=== PATIENT | male | born 1960 | race Caucasian/White ===

== ENCOUNTER 2019-01-07 21:03 | Inpatient (IN) ==
[~2019-01-07 21:03] MED LIST: Succinylcholine Inj 200 MG/10 ML Vial ONE
[2019-01-07] MEDS ORDERED: Etomidate Inj 40 MG/20 ML Vial IV.PUSH ONE (21:04)
[2019-01-07] MEDS ORDERED: Vancomycin Inj 1,000 MG in Sodium Chlor 0.9% Inj 250 ML IV.SIG ONE (21:16)
[2019-01-07] MEDS ORDERED: Propofol 1000 mg/100 ml Inj 1,000 MG/100 ML BOTTLE IV.CONT PRN (21:19)
[2019-01-07] MEDS ORDERED: Propofol 1000 mg/100 ml Inj 1,000 MG/100 ML BOTTLE ONE (21:23)
[2019-01-07] MEDS ORDERED: Piperacil/Tazo 4.5 GM Premix 4.5 GM/100 ML BAG IV.SIG SCH (21:30)
[2019-01-07] MEDS ORDERED: Amiodarone Inj 150 MG in Dextrose 5% in Water Inj 97 ML IV.SIG ONE ×2 (21:36)
[2019-01-07] MEDS ORDERED: Lidocaine 2% 100 MG/5 ML Syringe IV.PUSH ONE (21:36)
[2019-01-07] MEDS ORDERED: Sodium Bicarbonate 8.4% Inj 154 MEQ in Sod Chloride 0.9% Inj 846 ML IV.CONT SCH (21:45)
[2019-01-07] MEDS ORDERED: Sod Chloride 0.9% Inj 1,000 ML IV.SIG SCH (21:45)
[2019-01-07 21:55] LABS: Baso # (Auto) 0.1 th/mm3 (0.0-0.2); Baso % (Auto) 0.4 % (0.0-2.0); Eos # (Auto) 1.7 th/mm3 (0.0-0.4); Eos % (Auto) 4.8 % (0.0-4.0); Hematocrit 43.9 % (39.0-51.0); Hemoglobin 13.8 gm/dL (13.0-17.0); Lymph # (Auto) 1.9 th/mm3 (1.0-4.8); Lymph % (Auto) 5.5 % (9.0-44.0); Mean Corpuscular HGB Conc 31.5 % (32.0-36.0); Mean Corpuscular Hemoglobin 27.6 pg (27.0-34.0); Mean Corpuscular Volume 87.6 fL (80.0-100.0); Mono # (Auto) 1.8 th/mm3 (0.0-0.9); Mono % (Auto) 5.3 % (0.0-8.0); Neut # (Auto) 28.9 th/mm3 (1.8-7.7); Platelet Count 46 th/mm3 (150-450); Red Blood Count 5.01 mil/mm3 (4.50-5.90); White Blood Count 34.4 th/mm3 (4.0-11.0)
[2019-01-07] MEDS ORDERED: Magnesium Sulfate Inj 2 GM in Sodium Chlor 0.9% Inj 96 ML IV.SIG ONE (22:00)
[2019-01-07] MEDS ORDERED: Mag Sulf 1 gm/100 ml Premix 100 ML IV.SIG SCH (22:00)
[2019-01-07 22:12] LABS: ABG Base Excess -21.1 mmol/L (-2-2); ABG PCO2 36 mmHg (38-42); ABG PO2 493 mmHg (61-120)
[2019-01-07 22:12] LABS: Activated Partial Thrombo Time 45.5 sec (23.4-31.7); INR 1.6 Ratio; Prothrombin Time 16.5 sec (9.8-11.6)
[2019-01-07 22:15] LABS: Albumin 1.6 g/dL (3.4-5.0); Calcium 7.4 mg/dL (8.5-10.1); Carbon Dioxide 10.3 meq/L (21.0-32.0); Magnesium 3.4 mg/dL (1.5-2.5); Potassium 4.7 meq/L (3.5-5.1); Total Protein 5.5 g/dL (6.4-8.2); Troponin I 0.03 ng/mL (0.02-0.05)
--- NOTE | 2019-01-07 22:15 | CT ---
EXAM DATE: 01/07/2019 10:07 PM EST AGE/SEX: 58 years / Male INDICATIONS: Respiratory distress; patient ventilated. CLINICAL DATA: This is the patient's initial encounter. Patient reports that signs and symptoms have been present for 1 day and indicates a pain score of Nonresponsive. MEDICAL/SURGICAL HISTORY: Non-responsive. Non-responsive. RADIATION DOSE: 56.35 CTDI (mGy) COMPARISON: [facility] [place], CT BRAIN W/O CONTRAST, 10/13/2012. . TECHNIQUE: CT of the head without contrast. Using automated exposure control and adjustment of the mA and/or kV according to patient size, radiation dose was kept as low as reasonably achievable to ob tain optimal diagnostic quality images. DICOM format image data is available electronically for revi ew and comparison. FINDINGS: Cerebrum: The ventricles, sulci, and basal cisterns are prominent characteristic of moderate severit y central and cortical atrophy; the atrophy is a new finding compared to 2011.. No evidence of midli ne shift, mass lesion, hemorrhage or acute infarction. No extraaxial fluid collections are seen. Posterior Fossa: The cerebellum and brainstem are intact. The 4th ventricle is midline. The cerebe llopontine angle is unremarkable. Extracranial: The visualized portion of the orbits is intact. Several opacified ethmoid air cells. S mall air-fluid level left maxillary sinus Skull: The calvaria is intact. No evidence of skull fracture. CONCLUSION: 1. No acute findings in the brain. 2. Moderate central and cortical atrophy. 3. Ethmoid and left maxillary sinus disease. . . Electronically signed by: Andrew Woodall MD Board Certified Radiologist 01/07/2019 10:14 PM EST
[2019-01-07 22:23] LABS: Burr Cells 1+; Lymphocytes 6 % (9-44); Metamyelocytes 4 % (0-1); Monocytes 3 % (0-8)
[2019-01-07 22:24] LABS: Toxic Granulation 1+; Toxic Vacuolation Present
[2019-01-07 22:29] VITALS: TEMP 98
[2019-01-07] MEDS ORDERED: Acetaminophen 325 MG Tablet PO PRN (22:29)
[2019-01-07] MEDS ORDERED: Bisacodyl 10 MG Supp RECTAL PRN (22:29)
[2019-01-07] MEDS ORDERED: Heparin - SQ 10,000 UNITS/ML Vial SQ SCH (22:30)
--- NOTE | 2019-01-07 22:35 | XR ---
EXAM DATE: 01/07/2019 9:52 PM EST AGE/SEX: 58 years / Male INDICATIONS: ET tube placement. Respiratory arrest. CLINICAL DATA: This is the patient's subsequent encounter. Patient reports that signs and symptoms h ave been present for 1 day and indicates a pain score of Nonresponsive. MEDICAL/SURGICAL HISTORY: Non-responsive. Non-responsive. COMPARISON: No prior exams available for comparison. FINDINGS: ET tube tip well above the monika. Gastric tube tip and side-port project within the stomach. Left marquez bclavian catheter tip in the distal superior vena cava. No evidence of pneumothorax. Patchy areas of infiltrate are present throughout both lungs with the largest area of opacity in the central right neo ng. Patient is rotated towards the right. The heart is normal in size. Both hemidiaphragms well delin eated. CONCLUSION: 1. ET tube in good position. 2. Patchy partially consolidative infiltrates throughout both mid and upper lungs. Electronically signed by: Andrew Woodall MD Board Certified Radiologist 01/07/2019 10:33 PM EST
[2019-01-07] MEDS ORDERED: Vancomycin Consult Pharmacy OTHER ONE (22:37)
--- NOTE | 2019-01-07 22:38 | CT ---
EXAM DATE: 01/07/2019 10:13 PM EST AGE/SEX: 58 years / Male INDICATIONS: Respiratory distress. CLINICAL DATA: This is the patient's initial encounter. Patient reports that signs and symptoms have been present for 1 day and indicates a pain score of Nonresponsive. MEDICAL/SURGICAL HISTORY: Non-responsive. Non-responsive. RADIATION DOSE: 5.1 CTDI (mGy) ; Combined studies COMPARISON: No prior exams available for comparison. TECHNIQUE: Multiple contiguous axial images were obtained through the chest without contrast. Image s were obtained in suspended respiration using multiple row detector helical technique. Using automa juan exposure control and adjustment of the mA and/or kV according to patient size, radiation dose was kept as low as reasonably achievable to obtain optimal diagnostic quality images. DICOM format imag e data is available electronically for review and comparison. FINDINGS: Lungs: Abnormal. There are multifocal areas of opacity with central cavitation and irregular margins involving all segments of both lungs. The largest opacity is in the lateral segment of the right mid dle lobe and is consolidative. Additional areas of consolidation are seen medial in the left midlung and posterior lateral in the lower lung. The cavitary masses/infiltrates measure up to 2 cm in size. Mediastinum: There is good visualization of the great vessels of the middle mediastinum. No evidenc e of mediastinal or hilar adenopathy/mass. Pleurae: No evidence of focal thickening or pleural effusion. Axillae: Unremarkable. Bony Structures: Unremarkable. Miscellaneous: Gastric tube within the stomach. ET tube well above the monika. Left subclavian lacey ter tip at the distal superior vena cava. No evidence of pneumothorax. CONCLUSION: 1. Abnormal appearance to the lungs with disseminated opacities, some of which are cavitary and some of which are segmental with consolidation. The findings suggest a hematogenous process such as septi c emboli versus neoplasm. 2. No evidence of mediastinal adenopathy. Electronically signed by: Andrew Woodall MD Board Certified Radiologist 01/07/2019 10:37 PM EST
[2019-01-07] MEDS ORDERED: Sod Chloride 0.9% Inj 1,000 ML IV.SIG ONE (22:40)
--- NOTE | 2019-01-07 22:52 | CT ---
EXAM DATE: 01/07/2019 10:13 PM EST AGE/SEX: 58 years / Male INDICATIONS: Respiratory distress; patient unresponsive. CLINICAL DATA: This is the patient's initial encounter. Patient reports that signs and symptoms have been present for 1 day and indicates a pain score of Nonresponsive. MEDICAL/SURGICAL HISTORY: Non-responsive. Non-responsive. RADIATION DOSE: 5.1 CTDI (mGy) ; Combined studies COMPARISON: No prior exams available for comparison. TECHNIQUE: Multiple contiguous axial images were obtained through the abdomen. Images were obtained using multiple row detector helical technique. Using automated exposure control and adjustment of the mA and/or kV according to patient size, radiation dose was kept as low as reasonably achievable to o btain optimal diagnostic quality images. DICOM format image data is available electronically for rev iew and comparison. FINDINGS: Liver: The liver has a homogeneous density without space-occupying lesion for noncontrast technique.. There is no dilation of the biliary tree. No calcified gallstones. Spleen: Homogeneous density without enlargement. Pancreas: Unremarkable without mass or calcification. Kidneys: Normal in size and shape. No evidence of mass or hydronephrosis. Multiple small (less than 2 mm) nonobstructing stones throughout the carotid system of both kidneys. Adrenal Glands: Unremarkable. Aorta: The aorta and proximal iliac vessels are grossly unremarkable without aneurysmal dilation. Bowel/Mesentery: No dilated loops of small or large bowel. A moderate amount of stool and gas throug hout the colon. Abdominal Wall: Intact. Retroperitoneum: No evidence of adenopathy in the retrocrural, para-aortic, or deep pelvic regions. Bladder: Valerio catheter in the urinary bladder. Mild distention of the urinary bladder. Reproductive Organs: No abnormal masses or calcifications seen. Inguinal: No evidence of inguinal hernia. There is gas within the lumen of a vein in the left inguin al region Bony Structures: Multiple small round sclerotic lesions in the medial right ilium. Advanced osteoart hritis of the right hip with multiple subchondral cysts present in the femoral head and a small supra -acetabular cyst, complete loss of height of the superior joint space, and prominent osteophytes. Mil d degenerative changes are present in the left hip with osteophyte formation. CONCLUSION: 1. Multiple small nonobstructing stones in both kidneys without evidence of hydronephrosis. 2. There is gas seen within the lumen of the vein in the left inguinal region. 3. Multiple sclerotic lesions in the medial right ilium. This is nonspecific. 4. Advanced osteoarthritis of the right hip. 5. There is some distention of the urinary bladder despite an indwelling Valerio catheter. Electronically signed by: Andrew Woodall MD Board Certified Radiologist 01/07/2019 10:51 PM EST
--- NOTE | 2019-01-07 22:53 | P.HPCC ---
History of Present Illness Service: Critical care Primary Care Physician: No Primary Care Physician Chief Complaint: Altered mental status History of Present Illness: 58yM brought in by EMS for altered mental status and respiratory distress. The patient reportedly arrived to the ED toxic-appearing, mottled, in severe respiratory distress with oxygen saturations in low to mid 80s, and not mentating appropriately so the decision was made to emergently intubate him on arrival. He had a left tib-fib IO placed by EMS prior to arrival. The patient had a central line placed and during the procedure was noted to have V tach with a pulse that converted back into sinus tachycardia after receiving IV lidocaine and amiodarone bolus. The patient had CT scans of his head, chest, abdomen and pelvis performed which showed multiple cavitary lung lesions. He had an LP performed by the ED physician. On my evaluation, he was intubated and sedated. He reportedly has a history of IV drug abuse as per EMS. The patient was seen in our department on 01/04 complaining of right hip pain, found to have severe osteoarthritis and instructed to follow up with orthopedics, but did not require labs during that visit. I spoke with the patient's mother, Tenisha, over the phone; she is in [place] and has not seen the patient in several years. She spoke to him on the phone a few days ago and says that he was complaining of "chills and his whole body hurting". She doesn't know what medical problems he has, if he is taking medications, or if he uses any drugs or alcohol but believes that he still actively smokes. - Diagnosis (1) Severe sepsis (2) Acute kidney injury (3) Acute encephalopathy (4) Cavitary lesion of lung (5) Acute respiratory failure with hypoxia (6) Lactic acidosis (7) Bandemia (8) Metabolic acidosis (9) Acute liver failure (10) Ventricular tachycardia (11) Hyperammonemia Inpatient Certification: I certify that the inpatient services were ordered in accordance with Medicare regulations governing the order. This includes certification that hospital inpatient services are reasonable and necessary and in the case of services not specified as inpatient-only under 42 CFR 419.22(n), that they are appropriately provided as inpatient services in accordance to with the 2-midnight benchmark under 43 CFR 412.3(e) Estimated Total Length of Stay (Days): 10 Plans for Post Hospital Care: Not yet determined Review of Systems unobtainable due to endotracheal tube PMFSH - History History Provided By: Medical Record - Medical / Surgical Hx Neg / Unobtainable Medical Problems Denied: Unable to Obtain Surgical History: Unable to Obtain - Medical History Medical History: Medical History (Last Reviewed 01/07/19 @ 22:46 by Norma Ramirez DO) Medical history unknown Surgical history unknown Patient denies medical problems - Surgical History Surgical History: Surgical History (Last Reviewed 01/07/19 @ 22:46 by Norma Ramirez DO) No history of previous surgery - Social History I have reviewed the patient's Social History: Yes - Tobacco History Second Hand Smoke Exposure: Yes Smoking Status: Unknown if ever smoked Tobacco Type: Cigarettes - Alcohol History How Often Do You Have a Drink Containing Alcohol: Unable to Obtain - Substance Use History Substance History: Unable to Obtain - Travel History Recent Travel in the [place] Within the Last 8 Weeks: No Recent Travel Out of the Country Within the Last 8 Weeks: No - Immunization History Tetanus Immunization: Unable to Assess Medications and Allergies Active Medications: Active Medications Acetaminophen (Tylenol) 650 mg PO Q6H PRN PRN Reason: PAIN 1-10 AND/OR FEVER >101F Al Hydroxide/Mg Hydroxide (Milk Of Juanita Liq) 30 ml PO Q12H PRN PRN Reason: Mild Constipation Albuterol (Duoneb Neb (Prn)) 1 ampul NEB Q2HR NEB PRN PRN Reason: WHEEZING Albuterol (Duoneb Neb (Loyd)) 1 ampul NEB Q4HR NEB [facility] Bisacodyl (Dulcolax Supp) 10 mg RECTAL DAILY PRN PRN Reason: SEVERE CONSITIPATION Chlorhexidine Gluconate (Peridex 0.12% Oral Kit) 15 ml OROPHARYNG BID@0800, 2000 [facility] Chlorhexidine Gluconate (Chlorhexidine 2% Cloth) 3 pack TOPICAL DAILY@0400 [facility] Stop: 01/13/19 03:59 Chlorhexidine Gluconate (Chlorhexidine 2% Cloth) 3 pack TOPICAL DAILY@0400 PRN PRN Reason: Extra cloth needed Stop: 01/13/19 03:59 Famotidine (Pepcid) 20 mg PO DAILY [facility] Famotidine (Pepcid Pf Inj) 20 mg IV.PUSH DAILY [facility] Heparin Sodium (Porcine) (Heparin Inj) 5,000 units SQ Q12H [facility] Piperacillin/Tazobactam/Dextrose (Zosyn 4.5 Gm Premix) 4.5 gm in 100 mls @ 200 mls/hr IV.SIG ONCE [facility] Propofol (Diprivan 1000 Mg/100 Ml Inj) 1,000 mg in 100 mls @ 1.497 mls/hr IV.CONT TITRATE PRN; Protocol PRN Reason: Per Protocol Amiodarone HCl 450 mg/ (Dextrose) 250 mls @ 33.33 mls/hr IV.CONT TITRATE PRN; Protocol PRN Reason: Per Protocol Sodium Bicarbonate 154 meq/ (Sodium Chloride) 1,000 mls @ 0 mls/hr IV.CONT .Q0M [facility]; Protocol Magnesium Sulfate 2 gm/ Sodium (Chloride) 100 mls @ 50 mls/hr IV.SIG STAT ONE Stop: 01/07/19 23:59 Magnesium Sulfate/Dextrose (Magnesium Sulfate 1 Gm/D5w 100 Ml Premix) 100 mls @ 100 mls/hr IV.SIG Q1H [facility] Stop: 01/07/19 23:59 Vancomycin HCl 1,000 mg/ (Sodium Chloride) 250 mls @ 250 mls/hr IV.SIG Q12H [facility] Piperacillin/Tazobactam/Dextrose (Zosyn 4.5 Gm Premix) 4.5 gm in 100 mls @ 200 mls/hr IV.SIG Q6H [facility] Azithromycin 500 mg/ Sodium (Chloride) 250 mls @ 250 mls/hr IV.SIG Q24H [facility] Lactulose (Lactulose Liq) 30 ml PO DAILY PRN PRN Reason: SEVERE CONSITIPATION Miscellaneous Medication () 1 each OROPHARYNG 0000,0400,1200,1600 [facility] Ondansetron HCl (Zofran Inj) 4 mg IV.PUSH Q6H PRN PRN Reason: NAUSEA OR VOMITING Pharmacy Profile Note (Vancomycin Consult Pharmacy) 1 each OTHER ONCE ONE Stop: 01/07/19 22:38 Senna/Docusate Sodium (Liz-Colace) 1 tab PO BID [facility] Sennosides (Senokot) 17.2 mg PO Q12H PRN PRN Reason: Moderate Constipation Sodium Chloride (Ns Flush) 2 ml IV.FLUSH BID [facility] Sodium Chloride (Ns Flush) 2 ml IV.FLUSH PRN PRN PRN Reason: FLUSH AFTER USING IV ACCESS Allergies Allergy/AdvReac Type Severity Reaction Status Date / Time codeine Allergy Severe Hives Verified 01/07/19 22:10 Results - Labs CBC & Chem 7: 01/07/19 21:33 01/07/19 21:33 Labs: Short CBC 01/07/19 Range/Units 21:33 WBC 34.4 H (4.0-11.0) th/mm3 Hgb 13.8 (13.0-17.0) gm/dL Hct 43.9 (39.0-51.0) % Plt Count 46 L (150-450) th/mm3 BMP 01/07/19 21:33 Sodium 134 L Potassium 4.7 Chloride 96 L Carbon Dioxide 10.3 L BUN 87 H Creatinine 3.57 H Calcium 7.4 L* Cardiac Enzymes 01/07/19 Range/Units 21:33 Troponin I 0.03 (0.02-0.05) ng/mL Liver Function 01/07/19 Range/Units 21:33 Total Bilirubin 2.0 H (0.2-1.0) mg/dL AST 161 H (15-37) U/L ALT 70 (12-78) U/L Alkaline Phosphatase 185 H (45-117) U/L Albumin 1.6 L (3.4-5.0) g/dL - Imaging Impressions Chest X-Ray 01/07/19 21:17 CONCLUSION: 1. ET tube in good position. 2. Patchy partially consolidative infiltrates throughout both mid and upper lungs. Head CT 01/07/19 21:17 CONCLUSION: 1. No acute findings in the brain. 2. Moderate central and cortical atrophy. 3. Ethmoid and left maxillary sinus disease. . . Chest CT 01/07/19 21:37 CONCLUSION: 1. Abnormal appearance to the lungs with disseminated opacities, some of which are cavitary and some of which are segmental with consolidation. The findings suggest a hematogenous process such as septic emboli versus neoplasm. 2. No evidence of mediastinal adenopathy. - ABG ABG results: 6.98/ 46/ 493/ 8/ -21.1 Attestation: I personally reviewed and interpreted this ABG as follows: Interpretation: Profound metabolic acidosis Exam Vital signs: Vital Signs 01/07/19 21:03 01/07/19 21:17 Temperature 98.0 F Pulse Rate 140 H 140 H Respiratory Rate 44 H Blood Pressure 168/135 H Pulse Oximetry 85 L Intake & Output 01/07/19 01/07/19 01/08/19 06:59 18:59 06:59 Weight 49.895 kg Narrative: GEN: Ill-appearing, appears older than stated age, intubated and sedated HEENT: Mucosa pale and dry, pupils 3 mm and sluggishly reactive NECK: Trachea midline CARDIO: Tachy, regular, no obvious murmurs; left subclavian TLC present PULM: Diminished breath sounds at bases bilaterally ABD/GI: Soft, non-distended EXT/MSK: No peripheral edema, IO present in left prox tib-fib SKIN: Mottled, cool, delayed capillary refill; puncture wounds present to right AC in various stages of healing NEURO: GCS 3T, no spontaneous movement, (+) cough reflex PSYCH: Unable to assess Caprini VTE Risk Assessment Caprini VTE Risk Assessment: Moderate/High Risk (score >= 2) Caprini Risk Assessment Model: Point Value = 1 Point Value = 2 Point Value = 3 Point Value = 5 Age 41-60 Minor surgery BMI > 25 kg/m2 Swollen legs Varicose veins or History of unexplained or recurrent spontaneous Oral contraceptives or hormone replacement Sepsis (< 1 month) Serious lung disease, including pneumonia (< 1 month) Abnormal pulmonary function Acute myocardial infarction Congestive heart failure (< 1 month) History of inflammatory bowel disease Medical patient at bed rest Age 61-74 Arthroscopic surgery Major open surgery (> 45 min) Laparoscopic surgery (> 45 min) Malignancy Confined to bed (> 72 hours) Immobilizing plaster cast Central venous access Age >= 75 History of VTE Family history of VTE Factor V Leiden Prothrombin [id number] Lupus anticoagulant Anticardiolipin antibodies Elevated serum homocysteine Heparin-induced thrombocytopenia Other congenital or acquired thrombophilia Stroke (< 1 month) Elective arthroplasty Hip, pelvis, or leg fracture Acute spinal cord injury (< 1 month) Prophylaxis Regimen: Total Risk Factor Score Risk Level Prophylaxis Regimen 0-1 Low Early ambulation 2 Moderate Order ONE of the following: *Sequential Compression Device (SCD) *Heparin 5000 units SQ BID 3-4 Higher Order ONE of the following medications: *Heparin 5000 units SQ TID *Enoxaparin/Lovenox 40 mg SQ daily (WT < 150 kg, CrCl > 30 mL/min) *Enoxaparin/Lovenox 30 mg SQ daily (WT < 150 kg, CrCl > 10-29 mL/min) *Enoxaparin/Lovenox 30 mg SQ BID (WT < 150 kg, CrCl > 30 mL/min) AND/OR *Sequential Compression Device (SCD) 5 or more Highest Order ONE of the following medications: *Heparin 5000 units SQ TID (Preferred with Epidurals) *Enoxaparin/Lovenox 40 mg SQ daily (WT < 150 kg, CrCl > 30 mL/min) *Enoxaparin/Lovenox 30 mg SQ daily (WT < 150 kg, CrCl > 10-29 mL/min) *Enoxaparin/Lovenox 30 mg SQ BID (WT < 150 kg, CrCl > 30 mL/min) AND *Sequential Compression Device (SCD) Assessment and Plan - Problem List (1) Severe sepsis Code(s): A41.9 - Sepsis, unspecified organism; R65.20 - Severe sepsis without septic shock Status: Acute (2) Acute kidney injury Code(s): N17.9 - Acute kidney failure, unspecified Status: Acute (3) Acute encephalopathy Code(s): G93.40 - Encephalopathy, unspecified Status: Acute (4) Cavitary lesion of lung Code(s): J98.4 - Other disorders of lung Status: Acute (5) Acute respiratory failure with hypoxia Code(s): J96.01 - Acute respiratory failure with hypoxia Status: Acute (6) Lactic acidosis Code(s): E87.2 - Acidosis Status: Acute (7) Bandemia Code(s): D72.825 - Bandemia Status: Acute (8) Metabolic acidosis Code(s): E87.2 - Acidosis Status: Acute (9) Acute liver failure Code(s): K72.00 - Acute and subacute hepatic failure without coma Status: Acute (10) Ventricular tachycardia Code(s): I47.2 - Ventricular tachycardia Status: Acute (11) Hyperammonemia Code(s): E72.20 - Disorder of urea cycle metabolism, unspecified Status: Acute - Assessment and Plan Plan: 58yM presenting with severe sepsis/ multi-system organ dysfunction and acute hypoxic respiratory failure NEURO: Acute metabolic encephalopathy Possible history of IVDA -CTH showed no acute abnormalities -Currently only on propofol for sedation, synchronous with vent -LP performed by ED physician, f/u results of gram stain and culture -Received meningitic dose of rocephin in ED, see below CARDIO: Ventricular tachycardia Suspected infectious endocarditis -Resolved, now in sinus tachycardia -s/p lidocaine and amiodarone bolus -I suspect the VT was likely due to profound acidosis -Cardiac monitoring -Check 2D echo, may need SCOTT PULM: Acute hypoxic respiratory failure requiring mechanical ventilation Multiple cavitary lung lesions -Continue current vent settings, will check frequent ABGs to follow pH * Repeat ABG after aggressive resuscitation- 7.14/ 37.6/ 202/ 12.5/ -14.7 -CXR shows ETT in appropriate position -Broad-spectrum antibiotics as detailed below F/E/N, RENAL: Acute kidney injury Moderate to severe protein calorie malnutrition present on arrival as evidenced by hypoalbuminemia, low body weight, temporal wasting -NPO -Bicarb gtt -s/p multiple amps of bicarb and at least 3 L crystalloid bolus in ED -Trend BUN/ creat and strict Is/Os GI: Acute liver failure, suspected shock liver Hyperammonemia -INR 1.6 -LFTs elevated in 100s, total bilirubin 2.0 -Trend LFTs and coags daily -Ammonia nearly 50, start scheduled lactulose and recheck in AM -Check hepatitis profile ID: Severe sepsis/ multi-system organ dysfunction Profound lactic acidosis Multiple cavitary lung lesions Suspected infectious endocarditis Possible meningitis Incidental finding of gas in left inguinal region -Received 2g ceftriaxone in ED to cover for meningitis; follow up results of LP gram stain -Continue broad spectrum antibiotics, including vancomycin, zosyn, and azithromycin to cover bacteremia and lung lesions -Droplet and contact precautions for now -Sputum culture, sputum AFB, blood and urine cultures, legionella/ pneumococcus testing, HIV testing, hepatitis panel, stool C diff PCR -Infectious disease consult in AM -Continue aggressive fluid resuscitation and trend lactate * Bands currently 40% and lactic acid 15 -Gas in left inguinal region likely due to left IO placed prior to arrival, no interventions needed, no signs of necrotizing soft tissue infection in surrounding area on imaging ENDO: -NISS with q6h Accuchecks PROPHY: -SCDs, SQH -PPI OVERALL: This patient is critically ill and requires ICU level of care. He is at very high risk for decompensation. Counseling/ Coordination of Care: This patient is critically ill with impairment of one or more vital organ systems with a high probability of imminent or life-threatening deterioration. High-complexity medical decision making was required to support vital organ function and/ or prevent deterioration in the patient's condition. Total critical care time spent is 60 minutes giving full attention to this patient. This includes examining the patient, gathering history from someone other than the patient (i.e. chart review), discussing the patient's care with other providers, managing the patient's blood pressure and ventilator settings, ordering and interpreting radiologic studies, ordering and interpreting laboratory values, managing the patient's sedation requirements, re-evaluation at frequent intervals, and documentation. Amount of time is separate from teaching, counseling the patient and/or family, and exclusive of procedures. Code Status: Presumed to be full code, no family members present to verify
[2019-01-07] MEDS ORDERED: Vancomycin Consult Pharmacy OTHER PRN (22:54)
[2019-01-07 22:55] VITALS: BP 147/89
[2019-01-07] MEDS ORDERED: Azithromycin Inj 500 MG in Sodium Chlor 0.9% Inj 250 ML IV.SIG SCH (23:00)
[2019-01-07] MEDS ORDERED: Dextrose 50% in Water 50 ML Vial IV.PUSH PRN (23:19)
[2019-01-07 23:22] LABS: ABG Base Excess -14.7 mmol/L (-2-2); ABG PCO2 38 mmHg (38-42); ABG PO2 202 mmHg (61-120)
[2019-01-07 23:44] VITALS: O2SAT 100
[2019-01-07 23:53] VITALS: PULSE 80
[2019-01-07 23:56] VITALS: RESP 24
[2019-01-08] MEDS ORDERED: Oral Hygiene Kit OROPHARYNG SCH
[2019-01-08] MEDS ORDERED: Insulin NovoLIN Regular Correctional Sugar Inj SQ SCH
[2019-01-08 00:29] LABS: Lymphocytes, CSF 15 %; Monocytes,CSF 4 %; Neutrophils,CSF 64 %
[2019-01-08 00:34] LABS: RBC on Tube 4 14 /mm3
--- NOTE | 2019-01-08 00:34 | P.DN ---
Pronouncement Note - Date and Time of Date of : 01/08/19 Time of : 00:25 - PCOD Preliminary cause of : Cardiac arrest Preliminary cause of : Severe sepsis/ multisystem organ failure - Contributing Factors (1) Severe sepsis (2) Acute kidney injury (3) Acute encephalopathy (4) Cavitary lesion of lung (5) Acute respiratory failure with hypoxia (6) Lactic acidosis (7) Bandemia (8) Metabolic acidosis (9) Acute liver failure (10) Ventricular tachycardia (11) Hyperammonemia - Summary Additional details: Please see admission H&P for full details of presentation. At 11:55 PM on 01/07, I was called to the bedside by RN as the patient was noted to have multiple PVCs. Shortly thereafter, he was noted to go into cardiac arrest with PEA noted on monitor. He was given multiple rounds of epinephrine, sodium bicarb, calcium chloride, and had chest compressions performed for nearly 30 minutes. He was never noted to have a shockable rhythm. The patient was found to be in asystole on his final pulse check. He was pronounced at 00:25 on 01/08/19. I notified his mother by phone. Preliminary cause of is cardiac arrest secondary to severe sepsis/ multi- system organ dysfunction. - Additional Data Confirmation of : no pulse, no respirations, no heart sounds, pupils fixed and dilated Family: contacted Attending/PCP notified?: Yes Attending physician: Ashley Was code activated?: Yes
--- NOTE | 2019-01-08 01:28 | ED ---
HPI General Chief Complaint: Shortness of Breath/Dyspnea Stated Complaint: emergent Time Seen by Provider: 01/07/19 21:16 Source: EMS Mode of arrival: EMS Limitations: altered mental status History of Present Illness HPI narrative: 58-year-old male came to the emergency room brought in by EMS emergently altered mental status, respiratory distress. Patient was in extremis upon arrival. EMS was unable to secure any peripheral IV. Patient is a known IV drug abuser and as per EMS all the prophylaxis is were scarred. Patient appeared cyanotic/dusky with a GCS of 10. He was not in any condition to give any meaningful history. His blood glucose as per EMS was 125. As per EMS patient was just seen here a day or 2 back for not feeling well. Related Data Previous Rx's Medication Instructions Recorded diclofenac sodium 75 mg PO BID PRN #20 tab 01/04/19 Allergies Allergy/AdvReac Type Severity Reaction Status Date / Time codeine Allergy Severe Hives Verified 01/07/19 22:10 Review of Systems ROS Unobtainable ROS Unobtainable: unobtainable due to mental status [facility] Medical History Medical History Medical history unknown (Acute) Surgical history unknown (Acute) Patient denies medical problems (Acute) Surgical History Surgical History No history of previous surgery (Acute) Social History Social History Substance History: Unable to Obtain Second Hand Smoke Exposure: Yes Smoking Status: Unknown if ever smoked Tobacco Type: Cigarettes How Often Do You Have a Drink Containing Alcohol: Unable to Obtain Recent Travel in [facility] within the Last 8 Weeks: No Recent Out of Country Travel within the Last 8 Weeks: No Immunization History Tetanus Immunization: Unable to Assess Exam Narrative Exam Narrative: GENERAL: Altered mental status, in extremis, emaciated, anxious SKIN: Cyanotic, cold, mottled skin with Refill of more than 5 seconds HEAD: Atraumatic. Normocephalic. EYES: Pupils equal and round. No scleral icterus. No injection or drainage. ENT: No nasal bleeding or discharge. Dry mucous membrane and coated tongue. NECK: Trachea midline. No JVD. CARDIOVASCULAR: Regular rate and rhythm. No murmur appreciated. RESPIRATORY: Air hunger, tachypnea GASTROINTESTINAL: Abdomen soft, non-tender, nondistended. Hepatic and splenic margins not palpable. MUSCULOSKELETAL: No obvious deformities. No clubbing. No cyanosis. No edema. NEUROLOGICAL: GCS of 10 PSYCHIATRIC: Unable to assess Course Initial Documented Vital Signs Temperature 98.0 F 01/07/19 21:03 Pulse Rate 140 H 01/07/19 21:03 Respiratory Rate 44 H 01/07/19 21:03 Blood Pressure 168/135 H 01/07/19 21:03 Pulse Oximetry 85 L 01/07/19 21:03 Last Documented Vital Signs Temperature 98.0 F 01/07/19 21:03 Pulse Rate 80 01/07/19 23:51 Respiratory Rate 24 01/07/19 23:54 Blood Pressure 147/89 H 01/07/19 22:54 Pulse Oximetry 100 01/07/19 23:54 Procedures Central Line Placement Left SC: Patient Placed on Monitor/Pulse Ox: Yes MD Prep: mask, gown, gloves and other (Surgical hat) Central Line Prep: Chlorhexidine scrub Local anesthesia used: lidocaine 1% Amount of anesthesia used (mL): 3 Central Line Lumen Inserted: triple Post Procedure: good blood return, all ports aspirated, flushed, capped and sterile dressing applied Post Procedure X-Ray: tip of catheter in good position Patient Tolerated Procedure: no complications Complications: none Intubation Sedative: etomidate Mg Given: 20 Paralytic: succinylcholine Mg Given: 100 Laryngoscope: Al[place] ET Tube Size: 7.5 ET Tube Uncuffed: No Tube Secured Depth (cm): 22 Tube Secured Location: lips Tube Placement Confirmation: visualized tube passing through cords, equal breath sounds bilaterally, no breath sounds over epigastrium and confirmation by capnometry Patient Tolerated Procedure: no complications Intubation Complications: none IO Left Tibia: Anesthetic used: none IO Instrument Used to Penetrate the Cortex: standard IO needle Patient Tolerated Procedure: no complications Complications: none Lumbar Puncture Patient Position: left lateral decubitus Skin Prep: Povidone-Iodine 1% Local anesthetic used: Lidocaine 1% Amount of anesthesia used (mL): 3 Spinal Needle Gauge: 20G Interspace Used: L3-L4 Fluid Initially Obtained: clear Complications: none Critical Care Time Critical Care Time: Yes Total Critical Care Time: 75 Attestation: Aggregate critical care time was 75 minutes. Time to perform other separately billable procedures was not included in the critical care time. My time did not include minutes spent treating any other patients simultaneously or on activities that did not directly contribute to the patient's treatment. The services I provided to this patient were to treat and/or prevent clinically significant deterioration that could result in: Respiratory failure, septic shock, V. tach, fluid resuscitation I provided critical care services requiring my management, as noted below: Chart data review, documentation time, medication orders and management, vital sign assessments/reviewing monitor data, ordering and reviewing lab tests, ordering and interpreting/reviewing x-rays and diagnostic studies, care of the patient and discussion of the patient with the admitting physicians. Medical Decision Making MDM Narrative Medical decision making narrative: 11 PM patient was in extremely critical condition. After the airway was secured and IO was secured patient started getting IV fluid bolus, antibiotic for sepsis coverage. I was preparing to put a central line when noticed that patient was throwing and nonsustained VT's on the monitor. 1 amp of lidocaine was given. In the middle of getting the central line patient started getting VT's. He never lost his pulse. Patient was given 2 g of magnesium IV and IV 300 mg of amiodarone bolus. This converted the patient. Please refer to my procedure notes regarding the intubation as well as central line placement. ABG showed significant metabolic acidosis. Patient was given 2 amp of bicarb and bicarb drip was ordered. At this point I spoke with the front services agent and admitted the patient to Dr. Arellano. 1 AM patient was still in the department and started to code at around midnight. I started the code and 1 round of epinephrine was given. The front services agent came in the room and ran the rest of the code and eventually pronounced the patient. Please refer to her dictation regarding that. Medical Screen Exam Complete: Yes Emergency Medical Condition: Yes Lab Data Result diagrams: 01/07/19 21:33 01/07/19 21:33 Lab Results 01/07/19 01/07/19 01/07/19 Range/Units 21:24 21:33 21:33 WBC 34.4 H (4.0-11.0) th/mm3 RBC 5.01 (4.50-5.90) mil/mm3 Hgb 13.8 (13.0-17.0) gm/dL POC Hgb (Calc) (13.0-17.0) g/dL Hct 43.9 (39.0-51.0) % POC Hct (39-51.0) % MCV 87.6 (80.0-100.0) fL MCH 27.6 (27.0-34.0) pg MCHC 31.5 L (32.0-36.0) % RDW 17.0 (11.6-17.2) % Plt Count 46 L (150-450) th/mm3 MPV 11.0 (7.0-11.0) fL Prelim Diff (Auto) Slide review pending Neut % (Auto) 84.0 H (16.0-70.0) % Lymph % (Auto) 5.5 L (9.0-44.0) % [place] % (Auto) 5.3 (0.0-8.0) % Eos % (Auto) 4.8 H (0.0-4.0) % Baso % (Auto) 0.4 (0.0-2.0) % Neut # (Auto) 28.9 H (1.8-7.7) th/mm3 Lymph # (Auto) 1.9 (1.0-4.8) th/mm3 [place] # (Auto) 1.8 H (0.0-0.9) th/mm3 Eos # (Auto) 1.7 H (0.0-0.4) th/mm3 Baso # (Auto) 0.1 (0.0-0.2) th/mm3 WBC Differential Manual diff final Seg Neuts % (Manual) 46 (16-70) % Band Neuts % (Manual) 41 H (0-6) % Lymphocytes % (Manual) 6 L (9-44) % Monocytes % (Manual) 3 (0-8) % Metamyelocytes % (Man) 4 H (0-1) % Abs Neuts (Manual) 31.3 H (1.8-7.7) th/mm3 Differential Comment . Toxic Granulation 1+ H (None) Toxic Vacuolation Present H (None) Platelet Estimate Low L (Normal) Platelet Morphology Enlarged H (Normal) Gile Cells 1+ H (None) PT (9.8-11.6) sec INR Ratio APTT (23.4-31.7) sec Puncture Site Right brachial Patient Temperature 98.6 O2 Saturation 99 (90-100) % ABG pH 6.98 L* (7.380-7.420) ABG pCO2 36 L (38-42) mmHg ABG pO2 493 H (61-120) mmHg ABG HCO3 8 L* (22-26) mmol/L ABG O2 Content 20.0 (12.0-20.0) Vol % ABG Base Excess -21.1 L (-2-2) mmol/L ABG Methemoglobin 0.6 (0-2) % Hemoglobin 13.6 (12.0-16.0) G/DL Carboxyhemoglobin 0.0 (0-4) % O2 Delivery Device Ventilator Vent Setting Prvc / ac / Inspired O2 100 % Critical Value Yes POC Sodium (137-144) mmol/L Sodium 134 L (136-145) meq/L POC Potassium (3.6-5.0) mmol/L Potassium 4.7 (3.5-5.1) meq/L POC Chloride (102-111) mmol/L Chloride 96 L (98-107) meq/L Carbon Dioxide 10.3 L (21.0-32.0) meq/L Anion Gap 28 H (5-15) meq/L POC BUN (5-21) mg/dL BUN 87 H (7-18) mg/dL Creatinine 3.57 H (0.60-1.30) mg/dL POC Creatinine (0.6-1.3) mg/dL Estimated GFR 18 L (>89) mL/min POC Glucose (68-110) mg/dL Random Glucose 207 H (74-106) mg/dL Lactic Acid (0.4-2.0) mmol/L Calcium 7.4 L* (8.5-10.1) mg/dL Calcium Adj for Albumin 9.3 (8.5-10.1) mg/dL Magnesium 3.4 H (1.5-2.5) mg/dL Total Bilirubin 2.0 H (0.2-1.0) mg/dL AST 161 H (15-37) U/L ALT 70 (12-78) U/L Alkaline Phosphatase 185 H (45-117) U/L Ammonia (11-32) mcmol/L Troponin I 0.03 (0.02-0.05) ng/mL Total Protein 5.5 L (6.4-8.2) g/dL Albumin 1.6 L (3.4-5.0) g/dL CSF Volume (1) mL CSF Supernat Color (1) (Clear) CSF Gross Blood (1) (0) CSF Volume (2) mL CSF Supernat Color (2) (Clear) CSF Gross Blood (2) (0) CSF Volume (3) mL CSF Supernat Color (3) (Clear) CSF Gross Blood (3) (0) CSF Volume (4) mL CSF Supernat Color (4) (Clear) CSF Gross Blood (4) (0) CSF WBC (4) (0-10) /mm3 CSF RBC (4) (None) /mm3 CSF Neutrophils % % CSF Lymphocytes % % CSF Monocytes % % CSF Histiocytes % CSF Glucose (40-80) mg/dL CSF Total Protein (15.0-45.0) mg/dL CSF Herpes I DNA (PCR) (Negative) CSF Herpes II DNA (PCR) (Negative) CSF N.mening B/E.coli K1 CSF N.meningitidis A/Y Serum Alcohol (0-5) mg/dL Bacterial Ag Source H.influenzae Type B Ag N. meningitidis C/W 135 Group B Strep Antigen S. pneumoniae Antigen 01/07/19 01/07/19 01/07/19 Range/Units 21:33 21:33 21:35 WBC (4.0-11.0) th/mm3 RBC (4.50-5.90) mil/mm3 Hgb (13.0-17.0) gm/dL POC Hgb (Calc) 15.3 (13.0-17.0) g/dL Hct (39.0-51.0) % POC Hct 45.0 (39-51.0) % MCV (80.0-100.0) fL MCH (27.0-34.0) pg MCHC (32.0-36.0) % RDW (11.6-17.2) % Plt Count (150-450) th/mm3 MPV (7.0-11.0) fL Prelim Diff (Auto) Neut % (Auto) (16.0-70.0) % Lymph % (Auto) (9.0-44.0) % [place] % (Auto) (0.0-8.0) % Eos % (Auto) (0.0-4.0) % Baso % (Auto) (0.0-2.0) % Neut # (Auto) (1.8-7.7) th/mm3 Lymph # (Auto) (1.0-4.8) th/mm3 [place] # (Auto) (0.0-0.9) th/mm3 Eos # (Auto) (0.0-0.4) th/mm3 Baso # (Auto) (0.0-0.2) th/mm3 WBC Differential Seg Neuts % (Manual) (16-70) % Band Neuts % (Manual) (0-6) % Lymphocytes % (Manual) (9-44) % Monocytes % (Manual) (0-8) % Metamyelocytes % (Man) (0-1) % Abs Neuts (Manual) (1.8-7.7) th/mm3 Differential Comment Toxic Granulation (None) Toxic Vacuolation (None) Platelet Estimate (Normal) Platelet Morphology (Normal) Gile Cells (None) PT (9.8-11.6) sec INR Ratio APTT (23.4-31.7) sec Puncture Site Patient Temperature O2 Saturation (90-100) % ABG pH (7.380-7.420) ABG pCO2 (38-42) mmHg ABG pO2 (61-120) mmHg ABG HCO3 (22-26) mmol/L ABG O2 Content (12.0-20.0) Vol % ABG Base Excess (-2-2) mmol/L ABG Methemoglobin (0-2) % Hemoglobin (12.0-16.0) G/DL Carboxyhemoglobin (0-4) % O2 Delivery Device Vent Setting Inspired O2 % Critical Value POC Sodium 133 L (137-144) mmol/L Sodium (136-145) meq/L POC Potassium 4.4 (3.6-5.0) mmol/L Potassium (3.5-5.1) meq/L POC Chloride 102 (102-111) mmol/L Chloride (98-107) meq/L Carbon Dioxide (21.0-32.0) meq/L Anion Gap (5-15) meq/L POC BUN 79 H (5-21) mg/dL BUN (7-18) mg/dL Creatinine (0.60-1.30) mg/dL POC Creatinine 3.2 H (0.6-1.3) mg/dL Estimated GFR (>89) mL/min POC Glucose 199 H (68-110) mg/dL Random Glucose (74-106) mg/dL Lactic Acid 15.1 H* (0.4-2.0) mmol/L Calcium (8.5-10.1) mg/dL Calcium Adj for Albumin (8.5-10.1) mg/dL Magnesium (1.5-2.5) mg/dL Total Bilirubin (0.2-1.0) mg/dL AST (15-37) U/L ALT (12-78) U/L Alkaline Phosphatase (45-117) U/L Ammonia (11-32) mcmol/L Troponin I (0.02-0.05) ng/mL Total Protein (6.4-8.2) g/dL Albumin (3.4-5.0) g/dL CSF Volume (1) mL CSF Supernat Color (1) (Clear) CSF Gross Blood (1) (0) CSF Volume (2) mL CSF Supernat Color (2) (Clear) CSF Gross Blood (2) (0) CSF Volume (3) mL CSF Supernat Color (3) (Clear) CSF Gross Blood (3) (0) CSF Volume (4) mL CSF Supernat Color (4) (Clear) CSF Gross Blood (4) (0) CSF WBC (4) (0-10) /mm3 CSF RBC (4) (None) /mm3 CSF Neutrophils % % CSF Lymphocytes % % CSF Monocytes % % CSF Histiocytes % CSF Glucose (40-80) mg/dL CSF Total Protein (15.0-45.0) mg/dL CSF Herpes I DNA (PCR) (Negative) CSF Herpes II DNA (PCR) (Negative) CSF N.mening B/E.coli K1 CSF N.meningitidis A/Y Serum Alcohol Less than 3 (0-5) mg/dL Bacterial Ag Source H.influenzae Type B Ag N. meningitidis C/W 135 Group B Strep Antigen S. pneumoniae Antigen 01/07/19 01/07/19 01/07/19 Range/Units 21:35 21:50 21:51 WBC (4.0-11.0) th/mm3 RBC (4.50-5.90) mil/mm3 Hgb (13.0-17.0) gm/dL POC Hgb (Calc) (13.0-17.0) g/dL Hct (39.0-51.0) % POC Hct (39-51.0) % MCV (80.0-100.0) fL MCH (27.0-34.0) pg MCHC (32.0-36.0) % RDW (11.6-17.2) % Plt Count (150-450) th/mm3 MPV (7.0-11.0) fL Prelim Diff (Auto) Neut % (Auto) (16.0-70.0) % Lymph % (Auto) (9.0-44.0) % [place] % (Auto) (0.0-8.0) % Eos % (Auto) (0.0-4.0) % Baso % (Auto) (0.0-2.0) % Neut # (Auto) (1.8-7.7) th/mm3 Lymph # (Auto) (1.0-4.8) th/mm3 [place] # (Auto) (0.0-0.9) th/mm3 Eos # (Auto) (0.0-0.4) th/mm3 Baso # (Auto) (0.0-0.2) th/mm3 WBC Differential Seg Neuts % (Manual) (16-70) % Band Neuts % (Manual) (0-6) % Lymphocytes % (Manual) (9-44) % Monocytes % (Manual) (0-8) % Metamyelocytes % (Man) (0-1) % Abs Neuts (Manual) (1.8-7.7) th/mm3 Differential Comment Toxic Granulation (None) Toxic Vacuolation (None) Platelet Estimate (Normal) Platelet Morphology (Normal) Gile Cells (None) PT 16.5 H (9.8-11.6) sec INR 1.6 Ratio APTT 45.5 H (23.4-31.7) sec Puncture Site Patient Temperature O2 Saturation (90-100) % ABG pH (7.380-7.420) ABG pCO2 (38-42) mmHg ABG pO2 (61-120) mmHg ABG HCO3 (22-26) mmol/L ABG O2 Content (12.0-20.0) Vol % ABG Base Excess (-2-2) mmol/L ABG Methemoglobin (0-2) % Hemoglobin (12.0-16.0) G/DL Carboxyhemoglobin (0-4) % O2 Delivery Device Vent Setting Inspired O2 % Critical Value POC Sodium (137-144) mmol/L Sodium (136-145) meq/L POC Potassium (3.6-5.0) mmol/L Potassium (3.5-5.1) meq/L POC Chloride (102-111) mmol/L Chloride (98-107) meq/L Carbon Dioxide (21.0-32.0) meq/L Anion Gap (5-15) meq/L POC BUN (5-21) mg/dL BUN (7-18) mg/dL Creatinine (0.60-1.30) mg/dL POC Creatinine (0.6-1.3) mg/dL Estimated GFR (>89) mL/min POC Glucose (68-110) mg/dL Random Glucose (74-106) mg/dL Lactic Acid (0.4-2.0) mmol/L Calcium (8.5-10.1) mg/dL Calcium Adj for Albumin (8.5-10.1) mg/dL Magnesium Cancelled (1.5-2.5) mg/dL Total Bilirubin (0.2-1.0) mg/dL AST (15-37) U/L ALT (12-78) U/L Alkaline Phosphatase (45-117) U/L Ammonia 48 H (11-32) mcmol/L Troponin I (0.02-0.05) ng/mL Total Protein (6.4-8.2) g/dL Albumin (3.4-5.0) g/dL CSF Volume (1) mL CSF Supernat Color (1) (Clear) CSF Gross Blood (1) (0) CSF Volume (2) mL CSF Supernat Color (2) (Clear) CSF Gross Blood (2) (0) CSF Volume (3) mL CSF Supernat Color (3) (Clear) CSF Gross Blood (3) (0) CSF Volume (4) mL CSF Supernat Color (4) (Clear) CSF Gross Blood (4) (0) CSF WBC (4) (0-10) /mm3 CSF RBC (4) (None) /mm3 CSF Neutrophils % % CSF Lymphocytes % % CSF Monocytes % % CSF Histiocytes % CSF Glucose (40-80) mg/dL CSF Total Protein (15.0-45.0) mg/dL CSF Herpes I DNA (PCR) (Negative) CSF Herpes II DNA (PCR) (Negative) CSF N.mening B/E.coli K1 CSF N.meningitidis A/Y Serum Alcohol (0-5) mg/dL Bacterial Ag Source H.influenzae Type B Ag N. meningitidis C/W 135 Group B Strep Antigen S. pneumoniae Antigen 01/07/19 01/07/19 01/07/19 Range/Units 22:39 22:39 22:39 WBC (4.0-11.0) th/mm3 RBC (4.50-5.90) mil/mm3 Hgb (13.0-17.0) gm/dL POC Hgb (Calc) (13.0-17.0) g/dL Hct (39.0-51.0) % POC Hct (39-51.0) % MCV (80.0-100.0) fL MCH (27.0-34.0) pg MCHC (32.0-36.0) % RDW (11.6-17.2) % Plt Count (150-450) th/mm3 MPV (7.0-11.0) fL Prelim Diff (Auto) Neut % (Auto) (16.0-70.0) % Lymph % (Auto) (9.0-44.0) % [place] % (Auto) (0.0-8.0) % Eos % (Auto) (0.0-4.0) % Baso % (Auto) (0.0-2.0) % Neut # (Auto) (1.8-7.7) th/mm3 Lymph # (Auto) (1.0-4.8) th/mm3 [place] # (Auto) (0.0-0.9) th/mm3 Eos # (Auto) (0.0-0.4) th/mm3 Baso # (Auto) (0.0-0.2) th/mm3 WBC Differential Seg Neuts % (Manual) (16-70) % Band Neuts % (Manual) (0-6) % Lymphocytes % (Manual) (9-44) % Monocytes % (Manual) (0-8) % Metamyelocytes % (Man) (0-1) % Abs Neuts (Manual) (1.8-7.7) th/mm3 Differential Comment Toxic Granulation (None) Toxic Vacuolation (None) Platelet Estimate (Normal) Platelet Morphology (Normal) Gile Cells (None) PT (9.8-11.6) sec INR Ratio APTT (23.4-31.7) sec Puncture Site Patient Temperature O2 Saturation (90-100) % ABG pH (7.380-7.420) ABG pCO2 (38-42) mmHg ABG pO2 (61-120) mmHg ABG HCO3 (22-26) mmol/L ABG O2 Content (12.0-20.0) Vol % ABG Base Excess (-2-2) mmol/L ABG Methemoglobin (0-2) % Hemoglobin (12.0-16.0) G/DL Carboxyhemoglobin (0-4) % O2 Delivery Device Vent Setting Inspired O2 % Critical Value POC Sodium (137-144) mmol/L Sodium (136-145) meq/L POC Potassium (3.6-5.0) mmol/L Potassium (3.5-5.1) meq/L POC Chloride (102-111) mmol/L Chloride (98-107) meq/L Carbon Dioxide (21.0-32.0) meq/L Anion Gap (5-15) meq/L POC BUN (5-21) mg/dL BUN (7-18) mg/dL Creatinine (0.60-1.30) mg/dL POC Creatinine (0.6-1.3) mg/dL Estimated GFR (>89) mL/min POC Glucose (68-110) mg/dL Random Glucose (74-106) mg/dL Lactic Acid (0.4-2.0) mmol/L Calcium (8.5-10.1) mg/dL Calcium Adj for Albumin (8.5-10.1) mg/dL Magnesium (1.5-2.5) mg/dL Total Bilirubin (0.2-1.0) mg/dL AST (15-37) U/L ALT (12-78) U/L Alkaline Phosphatase (45-117) U/L Ammonia (11-32) mcmol/L Troponin I (0.02-0.05) ng/mL Total Protein (6.4-8.2) g/dL Albumin (3.4-5.0) g/dL CSF Volume (1) mL CSF Supernat Color (1) (Clear) CSF Gross Blood (1) (0) CSF Volume (2) mL CSF Supernat Color (2) (Clear) CSF Gross Blood (2) (0) CSF Volume (3) mL CSF Supernat Color (3) (Clear) CSF Gross Blood (3) (0) CSF Volume (4) mL CSF Supernat Color (4) (Clear) CSF Gross Blood (4) (0) CSF WBC (4) (0-10) /mm3 CSF RBC (4) (None) /mm3 CSF Neutrophils % % CSF Lymphocytes % % CSF Monocytes % % CSF Histiocytes % CSF Glucose 101 H (40-80) mg/dL CSF Total Protein 42.5 (15.0-45.0) mg/dL CSF Herpes I DNA (PCR) (Negative) CSF Herpes II DNA (PCR) (Negative) CSF N.mening B/E.coli K1 Cancelled CSF N.meningitidis A/Y Cancelled Serum Alcohol (0-5) mg/dL Bacterial Ag Source Cancelled H.influenzae Type B Ag Cancelled N. meningitidis C/W 135 Cancelled Group B Strep Antigen Cancelled S. pneumoniae Antigen Cancelled 01/07/19 01/07/19 01/07/19 Range/Units 22:39 22:39 23:11 WBC (4.0-11.0) th/mm3 RBC (4.50-5.90) mil/mm3 Hgb (13.0-17.0) gm/dL POC Hgb (Calc) (13.0-17.0) g/dL Hct (39.0-51.0) % POC Hct (39-51.0) % MCV (80.0-100.0) fL MCH (27.0-34.0) pg MCHC (32.0-36.0) % RDW (11.6-17.2) % Plt Count (150-450) th/mm3 MPV (7.0-11.0) fL Prelim Diff (Auto) Neut % (Auto) (16.0-70.0) % Lymph % (Auto) (9.0-44.0) % [place] % (Auto) (0.0-8.0) % Eos % (Auto) (0.0-4.0) % Baso % (Auto) (0.0-2.0) % Neut # (Auto) (1.8-7.7) th/mm3 Lymph # (Auto) (1.0-4.8) th/mm3 [place] # (Auto) (0.0-0.9) th/mm3 Eos # (Auto) (0.0-0.4) th/mm3 Baso # (Auto) (0.0-0.2) th/mm3 WBC Differential Seg Neuts % (Manual) (16-70) % Band Neuts % (Manual) (0-6) % Lymphocytes % (Manual) (9-44) % Monocytes % (Manual) (0-8) % Metamyelocytes % (Man) (0-1) % Abs Neuts (Manual) (1.8-7.7) th/mm3 Differential Comment Toxic Granulation (None) Toxic Vacuolation (None) Platelet Estimate (Normal) Platelet Morphology (Normal) Gile Cells (None) PT (9.8-11.6) sec INR Ratio APTT (23.4-31.7) sec Puncture Site Right brachial Patient Temperature 98.6 O2 Saturation 98 (90-100) % ABG pH 7.15 L* (7.380-7.420) ABG pCO2 38 (38-42) mmHg ABG pO2 202 H (61-120) mmHg ABG HCO3 13 L* (22-26) mmol/L ABG O2 Content 18.0 (12.0-20.0) Vol % ABG Base Excess -14.7 L (-2-2) mmol/L ABG Methemoglobin 0.5 (0-2) % Hemoglobin 12.8 (12.0-16.0) G/DL Carboxyhemoglobin 0.0 (0-4) % O2 Delivery Device Ventilator Vent Setting Prvc / ac / Inspired O2 50 % Critical Value Yes POC Sodium (137-144) mmol/L Sodium (136-145) meq/L POC Potassium (3.6-5.0) mmol/L Potassium (3.5-5.1) meq/L POC Chloride (102-111) mmol/L Chloride (98-107) meq/L Carbon Dioxide (21.0-32.0) meq/L Anion Gap (5-15) meq/L POC BUN (5-21) mg/dL BUN (7-18) mg/dL Creatinine (0.60-1.30) mg/dL POC Creatinine (0.6-1.3) mg/dL Estimated GFR (>89) mL/min POC Glucose (68-110) mg/dL Random Glucose (74-106) mg/dL Lactic Acid (0.4-2.0) mmol/L Calcium (8.5-10.1) mg/dL Calcium Adj for Albumin (8.5-10.1) mg/dL Magnesium (1.5-2.5) mg/dL Total Bilirubin (0.2-1.0) mg/dL AST (15-37) U/L ALT (12-78) U/L Alkaline Phosphatase (45-117) U/L Ammonia (11-32) mcmol/L Troponin I (0.02-0.05) ng/mL Total Protein (6.4-8.2) g/dL Albumin (3.4-5.0) g/dL CSF Volume (1) 1.0 mL CSF Supernat Color (1) Clear (Clear) CSF Gross Blood (1) 0 (0) CSF Volume (2) 1.0 mL CSF Supernat Color (2) Clear (Clear) CSF Gross Blood (2) 0 (0) CSF Volume (3) 1.0 mL CSF Supernat Color (3) Clear (Clear) CSF Gross Blood (3) 0 (0) CSF Volume (4) 1.0 mL CSF Supernat Color (4) Clear (Clear) CSF Gross Blood (4) 0 (0) CSF WBC (4) 7 (0-10) /mm3 CSF RBC (4) 14 H (None) /mm3 CSF Neutrophils % 64 % CSF Lymphocytes % 15 % CSF Monocytes % 4 % CSF Histiocytes 17 % CSF Glucose (40-80) mg/dL CSF Total Protein (15.0-45.0) mg/dL CSF Herpes I DNA (PCR) Negative (Negative) CSF Herpes II DNA (PCR) Negative (Negative) CSF N.mening B/E.coli K1 CSF N.meningitidis A/Y Serum Alcohol (0-5) mg/dL Bacterial Ag Source H.influenzae Type B Ag N. meningitidis C/W 135 Group B Strep Antigen S. pneumoniae Antigen Imaging Data Radiologist's impression: Abdomen/Pelvis CT 01/07/19 21:17 CONCLUSION: 1. Multiple small nonobstructing stones in both kidneys without evidence of hydronephrosis. 2. There is gas seen within the lumen of the vein in the left inguinal region. 3. Multiple sclerotic lesions in the medial right ilium. This is nonspecific. 4. Advanced osteoarthritis of the right hip. 5. There is some distention of the urinary bladder despite an indwelling Valerio catheter. Chest X-Ray 01/07/19 21:17 CONCLUSION: 1. ET tube in good position. 2. Patchy partially consolidative infiltrates throughout both mid and upper lungs. Head CT 01/07/19 21:17 CONCLUSION: 1. No acute findings in the brain. 2. Moderate central and cortical atrophy. 3. Ethmoid and left maxillary sinus disease. . . Chest CT 01/07/19 21:37 CONCLUSION: 1. Abnormal appearance to the lungs with disseminated opacities, some of which are cavitary and some of which are segmental with consolidation. The findings suggest a hematogenous process such as septic emboli versus neoplasm. 2. No evidence of mediastinal adenopathy. ECG Data Attestation: I personally reviewed and interpreted this ECG as follows: Interpretation: Twelve-lead EKG was reviewed by me. Normal sinus rhythm, tachycardia, normal axis, nonspecific ST-T wave changes. Heart rate of 137 bpm. Discharge Plan Discharge Disposition Patient Disposition: ED Admit(ED Internal Use Only) Discharge Condition Condition: Critical Discharge Order Discharge Orders: ED Use Only Admit Order (Routine); Ordered 01/07/19 Ordered By: Nanci Dee Discharge Details Date/Time: 01/08/19 00:25 Physicians Team ED Provider: Nanci Dee Primary Care Provider: Primary Care Lauren,Nenita Attending Provider: Norma Ramirez Other Providers: Gisselle Vazquez Status ED Status: Left Department Discharge Information Discharge Date/Time: 01/07/19 22:07
[2019-01-08] MEDS ORDERED: Piperacil/Tazo 2.25 GM Premix 2.25 GM/50 ML PIGGYBACK IV.SIG SCH (03:00)
[2019-01-08] MEDS ORDERED: Chlorhexidine Gluconate 2% 1 Pack (2 Cloths) TOPICAL SCH (04:00)
[2019-01-08] MEDS ORDERED: Chlorhexidine Gluconate 2% 1 Pack (2 Cloths) TOPICAL PRN (04:00)
[2019-01-08] MEDS ORDERED: Chlorhexidine 0.12% Oral Kit 15 ML UDC OROPHARYNG SCH (08:00)
[2019-01-08] MEDS ORDERED: Famotidine PF Inj 20 MG/2 ML Vial IV.PUSH SCH (09:00)
[2019-01-08] MEDS ORDERED: Famotidine 20 MG Tablet PO SCH (09:00)
[2019-01-08] MEDS ORDERED: Senna/Docusate Sodium 8.6/50 MG Tablet PO SCH (09:00)
[2019-01-08] MEDS ORDERED: Vancomycin Inj 1,000 MG in Sodium Chlor 0.9% Inj 250 ML IV.SIG SCH (09:00)
--- NOTE | 2019-01-08 12:40 | ECG ---
Date Performed: 01/07/2019 Time Performed: 21:41:36 PTAGE: 58 years EKG: SINUS TACHYCARDIA WITH FREQUENT ECTOPIC PREMATURE COMPLEXES SEPTAL MYOCARDIAL INFARCTION AB NORMAL ECG Compared to PREVIOUS TRACING tachycardia persists, ST segments are more pronounced and new Q waves n oted V2. Clinical correlation is recommended PREVIOUS TRACIN01/07/2019 21.16 DOCTOR: Karthik Thapa Interpretating Date/Time 01/08/2019 12:39:33
--- NOTE | 2019-01-08 12:40 | ECG ---
Date Performed: 01/07/2019 Time Performed: 21:16:16 PTAGE: 58 years EKG: SINUS TACHYCARDIA NONSPECIFIC ST & T-WAVE ABNORMALITY ABNORMAL RHYTHM ECG Clinical correlat ion is recommended NO PREVIOUS TRACING DOCTOR: Karthik Thapa Interpretating Date/Time 01/08/2019 12:38:52
== END 2019-01-08 06:09 | disposition expired | DRG 208 ==
LOC: NEPD 21:03 → NEDA 22:07
PROVIDERS: ADMIT Surgery Surgical Critical Care; ATTEND Surgery Surgical Critical Care
CPT/HCPCS: 31500; 36556; 36569; 36600; 62270; 70450; 71010; 71045; 71250; 74176; 80053; 80307; 82140; 82435; 82565; 82805; 82945; 82947; 83605; 83735; 84132; 84155; 84157; 84295; 84484; 84520; 85025; 85610; 85730; 86403; 87040; 87070; 87147; 87205; 87529; 89051; 90761; 90774; 90775; 90784; 92950; 93005; 94002; 94656; 94664; 96361; 96374; 96375; 99291; 99292; C8952; J0282; J0330; J0696; J2704; J3370; J3475; J7030; J7050; P9612